=== PATIENT | female | born 1950 | race American Indian/Alaskan Native ===

== ENCOUNTER 2021-10-13 11:05 | Outpatient (CLI) | payer MEDICARE, OTHER | END 2021-10-13 11:06 | disposition home or self-care (01) | LOC: SPVWC 11:05 | PROVIDERS: ATTEND Family Medicine Adult Medicine | DX: Z12.31 Encounter for screening mammogram for malignant neoplasm of breast (principal) | CPT/HCPCS: 77067 ==

== ENCOUNTER 2021-11-17 10:27 | Outpatient (CLI) | payer MEDICARE, OTHER ==
--- NOTE | 2021-11-17 11:56 | Ultrasound Report ---
RIGHT DIGITAL DIAGNOSTIC MAMMOGRAM WITH CAD CONVENTIONAL, 11/17/2021 RIGHT LIMITED BREAST ULTRASOUND CLINICAL INFORMATION / INDICATION: Patient presents as a callback from screening mammogram for furthe r evaluation of a focal asymmetric density in the right breast. R92.2 INCONCLUSIVE MAMMOGRAM TECHNIQUE: Digital right mammographic imaging was performed. Spot compression views were obtained. Li mited ultrasound was performed. This examination was interpreted with the benefit of Computer-Aided D etection (CAD) analysis. COMPARISON: Prior mammogram 10/13/2021 FINDINGS: Breast Density: There are scattered areas of fibroglandular density. MAMMOGRAPHIC FINDINGS: Spot compression views reveal a persistent 6 mm irregular focal asymmetric den sity in the upper outer quadrant of the right breast located approximately 10 cm from the nipple. Tar geted ultrasound was performed for further evaluation. ULTRASOUND FINDINGS: Targeted ultrasound evaluation was performed of the area of interest. Likely c orresponding with the mammographic finding, there is an oval hypoechoic mass with indistinct margins in the right breast 11:00 position located 10 cm the nipple measuring up to 6 x 4 x 5 mm. Internal va scularity is demonstrated. IMPRESSION: 1. A small hypoechoic mass in the 11:00 right breast appears to correspond with the recent mammograph ic finding and is considered suspicious for malignancy, ultrasound-guided biopsy is recommended. Follow up recommendation: Biopsy BI-RADS Category 4: SUSPICIOUS FOR MALIGNANCY. A "normal" or negative report should not discourage follow up or biopsy of a clinically significant f inding. A written summary of these findings will be mailed to the patient. The patient will be entered into a mammography reporting system which will generate a reminder letter for the patient's next appointmen t at the appropriate interval. According to the [employer], yearly mammograms are recommended starting at age 40 and continuing as long as a woman is in good health. Breast MRI is recommended for women with an amado roximately 20-25% or greater lifetime risk of breast cancer, including women with a strong family his tory of breast or ovarian cancer and women who have been treated for Hodgkin's disease. Signer Name: Chelsea Carlin MD Signed: 11/17/2021 11:52 AM Workstation Name: [id number]
== END 2021-11-17 10:28 | disposition home or self-care (01) ==
LOC: MAMMO 10:27
PROVIDERS: ATTEND Family Medicine Adult Medicine
DX: N63.11 Unspecified lump in the right breast, upper outer quadrant (principal); R92.2 Inconclusive mammogram

== ENCOUNTER 2021-12-08 09:31 | Outpatient (CLI) | payer MEDICARE, OTHER ==
[2021-12-08] MEDS ORDERED: LIDOCAINE (1%) 10 MG/1 ML VIAL 20 ML MDV ONE (11:53)
--- NOTE | 2021-12-08 14:12 | Ultrasound Report ---
ULTRASOUND GUIDED RIGHT BREAST BIOPSY, 12/08/2021 DIAGNOSTIC MAMMOGRAM UNILATERAL, RIGHT CLINICAL INFORMATION / INDICATION: Abnormal mammogram and breast ultrasound. 6 mm right breast lesion seen on recent ultrasound. COMPARISON: 11/17/2021 diagnostic mammogram and breast ultrasound. PROCEDURE: Risks, benefits, and indications to the procedure were discussed with the patient in detail, includin g bleeding, infection, hematoma formation, and inadequate tissue sampling. The patient agreed to proc eed with both verbal and written consent. A timeout procedure was performed with two patient identifi ers. The breast was prepped and draped in the usual sterile fashion. Lidocaine 1% with and without epineph rine were used for local anesthesia. Under direct ultrasound guidance, 3 separate 14-gauge core sampl es were obtained of the 6-7 mm hypoechoic breast mass in the upper outer quadrant of the right breast . A biopsy marker was then placed. Biopsy device was removed and hemostasis achieved with manual pre ssure. A sterile dressing was applied to the skin. The patient tolerated the procedure without difficulty. No complications were encountered. Postbiopsy instructions were discussed with the patient and given in writing. Specimens were sent to pathology. Postbiopsy diagnostic mammogram was obtained. The images demonstrate the U-Clip/biopsy clip in the up per outer quadrant of the breast although it is posterior to the initial abnormality noted on diagnos tic mammogram on 11/17/2021. IMPRESSION: Successful ultrasound-guided biopsy of the 6 mm hypoechoic breast lesion seen on the ultrasound right breast examination dated 11/17/2021. Postbiopsy diagnostic mammogram demonstrates the biopsy clip is posterior to the abnormality noted on the diagnostic mammogram dated 11/17/2021. This could represent multicentric disease or the initial lesion seen on diagnostic mammogram is not visible on ultrasound. For these reasons, MRI of the breast with and without contrast should be considered to fully evaluat e. Signer Name: Jakub Gray Jr, MD Signed: 12/08/2021 2:08 PM Workstation Name: [id number]
== END 2021-12-08 09:32 | disposition home or self-care (01) ==
LOC: US 09:31
PROVIDERS: ATTEND Family Medicine Adult Medicine
DX: N63.11 Unspecified lump in the right breast, upper outer quadrant (principal); R92.2 Inconclusive mammogram; R92.8 Other abnormal and inconclusive findings on diagnostic imaging of breast; N64.89 Other specified disorders of breast; Z88.8 Allergy status to other drugs, medicaments and biological substances
CPT/HCPCS: 88305